=== PATIENT | female | born 1995 | race Native Hawaiian/Other Pacific Islander ===

== ENCOUNTER 2016-11-17 16:29 | Emergency (ER) | payer OTHER ==
[~2016-11-17] VITALS: Ht 167.6 cm; Wt 62.6 kg
[~2016-11-17 16:29] MED LIST: ADIPEX PO; AMOX500C85 PO; IBUP800T30 PO
[2016-11-17 16:50] VITALS: BP 134/85; TEMP 98.3
[2016-11-17 17:37] LABS: PLATELET COUNT 163 K/uL (152-353)
[2016-11-17 17:46] LABS: POTASSIUM 3.3 mmol/L (3.6-5.2); SODIUM 133 mmol/L (136-145)
== END 2016-11-17 21:30 | disposition left against medical advice (07) ==
LOC: ED 16:29
PROVIDERS: Specialist
DX: R10.31 Right lower quadrant pain (principal)
CPT/HCPCS: 36415; 80053; 80307; 81000; 81025; 85027; 96360; 96375; 99284; G0479; J2550

== ENCOUNTER 2019-03-23 12:34 | Emergency (ER) | payer OTHER ==
[~2019-03-23] VITALS: Ht 170.2 cm; Wt 72.6 kg
[2019-03-23 12:40] VITALS: TEMP 97.9
[2019-03-23 13:51] LABS: PLATELET COUNT 168 K/uL (152-353)
[2019-03-23 15:23] VITALS: BP 115/60
== END 2019-03-23 15:24 | disposition home or self-care (01) ==
LOC: ED 12:34
PROVIDERS: Family Medicine
DX: O23.41 Unspecified infection of urinary tract in pregnancy, first trimester (principal); Z3A.01 Less than 8 weeks gestation of pregnancy
CPT/HCPCS: 80053; 81000; 81025; 84702; 85027; 87502; 99283; 99284